=== PATIENT | male | born 1995 | race Hispanic/Latino ===

== ENCOUNTER 2021-12-25 09:00 | Emergency (ER) | payer OTHER ==
[~2021-12-25] VITALS: Ht 170.2 cm; Wt 83.9 kg
[2021-12-25] MEDS ORDERED: TETANUS/DIPHTHERIA TOXOID [ADULT] 0.5 ML VIAL IM SCH (09:17)
[2021-12-25] MEDS ORDERED: BACITRACIN 1 EACH PACKET TP ONE (09:32)
[2021-12-25] MEDS ORDERED: CEPH500B PO (10:26)
[2021-12-25 10:38] VITALS: BP 130/75
== END 2021-12-25 10:35 | disposition home or self-care (01) ==
LOC: EDH 09:00
DX: S01.111A Laceration without foreign body of right eyelid and periocular area, initial encounter (principal); S51.011A Laceration without foreign body of right elbow, initial encounter; S40.211A Abrasion of right shoulder, initial encounter; S50.311A Abrasion of right elbow, initial encounter; V29.49XA Motorcycle driver injured in collision with other motor vehicles in traffic accident, initial encounter; Y93.89 Activity, other specified; Y92.89 Other specified places as the place of occurrence of the external cause; Y99.8 Other external cause status
CPT/HCPCS: 12002; 12013; 70450; 72125; 73030; 73070; 90471; 90714

== ENCOUNTER 2023-06-01 22:32 | Emergency (ER) | payer OTHER ==
[~2023-06-01] VITALS: Ht 167.6 cm; Wt 83.9 kg
[~2023-06-01 22:32] MED LIST: CEPH500B PO
[2023-06-01 23:41] VITALS: BP 123/89; PULSE 82; RESP 18; O2SAT 96
== END 2023-06-01 23:54 | disposition home or self-care (01) ==
LOC: EDH 22:32
DX: F14.10 Cocaine abuse, uncomplicated (principal); R07.89 Other chest pain; R00.2 Palpitations; J45.909 Unspecified asthma, uncomplicated; Z98.890 Other specified postprocedural states
CPT/HCPCS: 36415; 71045; 84484

== ENCOUNTER 2023-09-02 05:02 | Emergency (ER) | payer OTHER ==
[~2023-09-02] VITALS: Ht 167.6 cm; Wt 86.2 kg
[2023-09-02 05:07] VITALS: BP 154/93; PULSE 100; RESP 14; O2SAT 100
[2023-09-02 05:24] LABS: BASOPHILS # (AUTO) 0.09 K/uL (0.00-0.20); BASOPHILS % (AUTO) 1.1 % (0.0-5.0); EOSINOPHILS # (AUTO) 0.51 K/uL (0.00-0.70); EOSINOPHILS % (AUTO) 6.5 % (0.0-8.0); HEMATOCRIT 46.3 % (42-54); IMMATURE GRANULOCYTE ABSOLUTE 0.02 K/uL (0-1); LYMPHOCYTES # (AUTO) 1.7 K/uL (1.0-4.8); LYMPHOCYTES % (AUTO) 22.1 % (21.0-51.0); MEAN CORPUSCULAR HEMOGLOBIN 30.6 pg (27.0-33.0); MEAN CORPUSCULAR HGB CONC 35.6 g/dL (32.0-36.0); MEAN CORPUSCULAR VOLUME 85.9 fL (79-99); MONOCYTES # (AUTO) 0.5 K/uL (0.1-1.0); NEUTROPHILS # (AUTO) 5.1 K/uL (1.8-7.7); PLATELET COUNT (AUTO) 259 K/uL (130-400); RED BLOOD CELL COUNT(AUTO) 5.39 MIL/uL (4.50-6.20); RED CELL DISTRIBUTION WIDTH 11.9 % (11.0-15.5); WHITE BLOOD COUNT (AUTO) 7.9 K/uL (4.8-10.8)
[2023-09-02 05:43] LABS: POTASSIUM 3.3 mmol/L (3.5-5.1)
[2023-09-02 05:47] LABS: BILIRUBIN,TOTAL 0.4 mg/dL (0.2-1.0); TOTAL PROTEIN, SERUM 7.6 g/dL (6.0-8.3)
[2023-09-02 05:55] LABS: INR <= 0.93 (0.85-1.15); PROTHROMBIN TIME 10.3 SEC (9.6-11.6)
[2023-09-02 05:57] LABS: PARTIAL THROMBOPLASTIN TIME 27.3 SEC (26.3-35.5)
== END 2023-09-02 05:32 | disposition left against medical advice (07) ==
LOC: EDH 05:02
DX: R07.89 Other chest pain (principal); Z53.21 Procedure and treatment not carried out due to patient leaving prior to being seen by health care provider
CPT/HCPCS: 36415; 80053; 82550; 83880; 84484; 85025; 85610; 85730; 93005; 99281

== ENCOUNTER 2023-10-11 13:55 | Emergency (ER) | payer OTHER ==
[~2023-10-11] VITALS: Ht 167.6 cm; Wt 85.7 kg
[2023-10-11 15:17] VITALS: PULSE 75; RESP 20
[2023-10-11] MEDS: IPRATROPIUM/ALBUTEROL SULFATE 3 ML SOLUTION IH ONE (15:21)
[2023-10-11] MEDS ORDERED: ALBUHFA IH (15:34)
[2023-10-11] MEDS ORDERED: ALBU1.252 IH (15:52)
[2023-10-11 16:09] VITALS: BP 131/88; PULSE 80; RESP 20; O2SAT 99
[2023-10-12] MEDS ORDERED: MOME13HF12 IH (06:32)
[2023-10-12] MEDS ORDERED: IPRA3AMP24 IH (06:32)
== END 2023-10-11 16:57 | disposition home or self-care (01) ==
LOC: EDH 13:55
DX: J45.901 Unspecified asthma with (acute) exacerbation (principal); Z79.899 Other long term (current) drug therapy
CPT/HCPCS: 94640

== ENCOUNTER 2023-10-12 05:52 | Emergency (ER) | payer OTHER ==
[~2023-10-12] VITALS: Ht 167.6 cm; Wt 81.6 kg
[~2023-10-12 05:52] MED LIST changes: +ALBU1.252 IH; +ALBUHFA IH
[2023-10-12] MEDS ORDERED: IPRA3AMP24 IH (06:32)
[2023-10-12] MEDS ORDERED: MOME13HF12 IH (06:32)
[2023-10-12 06:44] VITALS: BP 122/80; PULSE 0; RESP 18; O2SAT 98
== END 2023-10-12 06:46 | disposition home or self-care (01) ==
LOC: EDH 05:52
DX: J45.41 Moderate persistent asthma with (acute) exacerbation (principal); Z79.899 Other long term (current) drug therapy

== ENCOUNTER 2023-11-05 10:44 | Emergency (ER) | payer OTHER ==
[~2023-11-05] VITALS: Ht 167.6 cm; Wt 85.7 kg
[~2023-11-05 10:44] MED LIST changes: +IPRA3AMP24 IH; +MOME13HF12 IH
[2023-11-05] MEDS: ALBUTEROL 0.083% 2.5 MG/3 ML INH IH ONE (11:50)
[2023-11-05 11:53] VITALS: PULSE 90; RESP 20
[2023-11-05] MEDS: SOLU-MEDROL 125MG VIAL IVP ONE (12:15)
[2023-11-05] MEDS ORDERED: METH4TAB3 PO (13:31)
[2023-11-05] MEDS ORDERED: AUD IH (13:31)
[2023-11-05 13:47] VITALS: BP 128/75; PULSE 98; RESP 22; O2SAT 99
== END 2023-11-05 13:51 | disposition home or self-care (01) ==
LOC: EDH 10:44
DX: J45.909 Unspecified asthma, uncomplicated (principal); Z79.899 Other long term (current) drug therapy
CPT/HCPCS: 99283; 96374; 94640; J2919

== ENCOUNTER 2024-03-12 07:50 | Emergency (ER) | payer BC ==
[~2024-03-12] VITALS: Ht 167.6 cm; Wt 90.7 kg
[~2024-03-12 07:50] MED LIST changes: +AUD IH; +METH4TAB3 PO
[2024-03-12] MEDS ORDERED: PRED20TA3 PO (08:13)
--- NOTE | 2024-03-12 08:13 | ERN ---
General Chief Complaint: Adult-Asthma Stated Complaint: ASTHMA ATTACK Time Seen by MD: 08:01 History of Present Illness Initial Comments 28-year-old male, history of intermittent asthma since he was a child, presents for wheezing. He reports about 72 hours ago he had a fever sore throat and cough. The fevers have subsided but he has continued with wheezing and dry cough. No sputum production. No longer has a sore throat. P.o. tolerant. He has been using his DuoNeb at home every 6 hours. On arrival, his wheezing in all lobes, he is moving air. Oxygen saturation 97% on room air. No tachypnea. Medical history: Intermittent asthma Allergies: Coded Allergies: No Known Allergies (Unverified Allergy, Unknown, 12/25/21) Home Meds Active Scripts Prednisone (Prednisone) 20 Mg Tablet, 1 TAB PO BID for 5 Days, #10 TAB 0 Refills Prov:PUSHPA MUÑOZ DO 03/12/24 Methylprednisolone (Medrol) 4 Mg Tab.ds.pk, 4 MG PO AD, #1 UNIT Prov:KRISTINE JARA NP 11/05/23 Albuterol Sulfate (Albuterol Sulfate) 2.5 Mg/0.5 Ml Vial.neb, 2.5 MG IH Q6H for wheezing/sob, #20 INH 0 Refills Prov:KRISTINE JARA NP 11/05/23 Mometasone/Formoterol (Dulera 100 Mcg/5 Mcg Inhaler) 100 Mcg-5 Mcg/Actuation Hfa.aer.ad, 13 GM IH Twice a day for 90 Days, #7 .72 Prov:CEE GILLIS MD 10/12/23 Ipratropium/Albuterol Sulfate (Iprat-Albut 0.5-3(2.5) mg/3 ml) 0.5 Mg-3 Mg (2.5 Mg Base)/3 Ml Ampul.neb, 3 ML IH Q6HPRN PRN for Shortness of breath and wheezi for 90 Days, #60 / Prov:CEE GILLIS MD 10/12/23 Albuterol Sulfate (Albuterol Sulfate) 1.25 Mg/3 Ml Vial.neb, 1.25 MG IH BID, #7 INH Prov:CHRIS SILVER 10/11/23 Albuterol Sulfate (Ventolin Hfa/Proventil Hfa/Proair Hfa) 90 Mcg Puff, 90 MCG IH DAILY, #1 INHALER Prov:CHRIS SILVER 10/11/23 Cephalexin Monohydrate (Keflex) 500 Mg Cap, 500 MG PO TID for 7 Days, #21 CAP Prov:BISHOP CHASE MD 12/25/21 Past Medical History Past Medical History: Asthma Past Surgical History: None Family History Family History: Negative Social History Social History: Drugs, ETOH ROS Dictation CONSTITUTIONAL: No chills, no fever, no weakness, no diaphoresis, no malaise. HEAD/FACE: No signs of trauma. EENT: No eye pain, no blurred vision, no tearing, no double vision, no ear pain, no ear discharge, no nose pain, no nasal congestion, no throat pain, no throat swelling, no mouth pain. RESPIRATORY: Wheezing and cough CARDIOVASCULAR: No chest pain, no edema, no palpitations, no syncope. GASTROINTESTINAL/ABDOMINAL: No abdominal pain, no constipation, no diarrhea, no nausea, no vomiting. GENITOURINARY: No abnormal discharge, no dysuria, no frequent urination, no hematuria. No complaints of pain in the genitals. MUSCULOSKELETAL: No back pain, no gout, no joint pain, no joint swelling, no muscle pain, no muscle stiffness, no neck pain. INTEGUMENTARY: No change in color, no change in hair/nails, no dryness, no lesion, no lumps, no rash. NEUROLOGICAL/PSYCH: No anxiety, not depressed, no emotional problem, no headache, no numbness, no pre-existing deficit, no history of seizures, no tremors, no weakness. HEMATOLOGIC/LYMPHATIC: Not anemic, no history of blood clots, no apparent bleeding, no bruising, glands not swollen. All Systems Negative, Except as Noted. Physical Exam Physical Exam Dictation VITAL SIGNS: Reviewed. GENERAL APPEARANCE: Alert, oriented x3, no acute distress. HEAD AND FACE: Non-traumatic. EYES: PERRL, pink conjunctivas, eyelid no trauma, anterior chamber clear. EARS: Pinnas intact and no signs of trauma or erythema. Ear canals clear and no discharge. TMs no erythema. NOSE: No discharge, no bleeding. OROPHARYNX: Mouth normal, teeth no caries, tongue pink. Pharynx clear, no erythema. Tonsils no exudates, no abscesses noted. Mucous membrane moist. NECK: Supple, non-tender, no thyromegaly, no masses, no JVD, no bruits. BREAST: Deferred. CHEST: No tenderness, no crepitus, no paradoxical movement, no retractions. LUNGS: Wheezing, mild rhonchi all lobes. Prolonged expiratory phase. No tachypnea. No retractions or accessory muscle use HEART: Regular rate, regular rhythm, no murmur, no gallops. VASCULAR: No peripheral edema. ABDOMEN: Soft, positive bowel sounds, nondistended, no guarding, nontender, no rebound, no masses no hepatomegaly, no splenomegaly, no Neves's sign, no hernias. RECTAL: Deferred. GENITAL: Deferred. NEUROLOGICAL: Normal speech, gross motor function intact, gross sensory function intact. MUSCULOSKELETAL: Neck nontender, full range of motion, back nontender, full range of motion. EXTREMITIES: Nontender, full range of motion. SKIN: Color pink, dry, no turgor, no rash, no lacerations, no abrasions, no contusions. LYMPHATICS: Deferred. Results Laboratory and Microbiology Lab and Micro Result Laboratory Tests Test 03/12/24 08:08 Influenza Type A Antigen Negative For Type A Influenza Type B Antigen Negative For Type B SARS-CoV-2 Antigen (Rapid) PRESUMPTIVE NEGATIVE MDM CC: Wheezing, cough Historian: Patient Comorbidities: Intermittent asthma Differential diagnosis: Asthma exacerbation, flu, viral URI, pneumonia Vital signs: Blood pressure 144/96, respiratory rate 20. Physical exam: Expiratory wheezing all lobes with some rhonchi Studies: Flu and SARS negative CXR: No acute focal infiltrates per my independent interpretation. Patient received 10 mg albuterol, 500 mcg of Atrovent, and oral prednisone. Re-evaluation: Patient has improved. Still very minimal wheezing. Will recommend [id number], we will give a prescription for prednisone 20 mg b.i.d. for five days. Recommend [id number] cough and congestion medications as needed. ED Course Orders Procedure Category Date Status Time Covid19 (Sars Antigen LAB 03/12/24 Complete Rapid) 08:03 Influenza Type A & B, LAB 03/12/24 Complete Rapid 08:03 Chest 1vw RAD 03/12/24 Taken 08:03 Ipratropium/Albuterol PHA 03/12/24 Complete Neb (Duoneb) 08:30 Prednisone 20mg Tab PHA 03/12/24 Complete (Deltasone/Orasone 2 08:30 Albuterol 0.083% PHA 03/12/24 Complete 2.5mg/3ml (Proventil 08:30 Ipratropium 0.5 PHA 03/12/24 Complete Mg/2.5 Ml Inh 08:30 Current Medications Medications (Trade) Dose Ordered Sig/Karly Route PRN Reason Start Time Stop Time Status Last Admin Dose Admin Albuterol (DUOneb) 1 UDVIAL ONCE ONCE IH 03/12/24 08:30 03/12/24 08:08 DC Albuterol Sulfate (Proventil 0.083% 2.5mg/3ml) 10 mg ONCE ONCE IH 03/12/24 08:30 03/12/24 08:31 DC 03/12/24 08:36 Ipratropium [place] (AtrovENT UD) 0.5 mg ONCE ONCE IH 03/12/24 08:30 03/12/24 08:31 DC 03/12/24 08:36 Prednisone (deltaSONE/ oraSONE 20MG TAB) 20 mg ONCE ONCE PO 03/12/24 08:30 03/12/24 08:31 DC 03/12/24 08:22 Vital Signs Date Time Temp Pulse Resp B/P (MAP) Pulse Ox O2 Delivery O2 Flow Rate FiO2 03/12/24 08:39 102 14 03/12/24 08:24 98.2 80 16 137/88 98 Room Air* 0 21 03/12/24 07:54 98.4 99 20 144/96 Room Air 0 DX & DISP Disposition: Discharge Departure Impression: Primary Impression: Asthma exacerbation Additional Impression: Viral URI Condition: Stable Scripts Prednisone (Prednisone) 20 Mg Tablet 1 TAB PO BID for 5 Days, #10 TAB 0 Refills Prov: PUSHPA MUÑOZ DO 03/12/24 Additional Instructions: You likely had a viral upper respiratory infection causing an asthma exacerbation. Your flu and COVID swabs were negative. Your chest x-ray is clear. You received 10 mg of albuterol, 500 mcg of Atrovent, and 20 mg of oral prednisone here in the ER. I have prescribed prednisone. Take twice per day for the next five days. This reduces inflammation in your lungs. I recommend that you continue with your duo nebs at home. For the next 24-48 hours taken DuoNeb every 4 hours. After that, you can use as needed. You can also take [id number] cough and cold medications as needed. Drink plenty of liquids. Please follow up with your primary doctor in 48 hours for re-evaluation. Please return to the emergency department sooner if you have any concerns. Referrals: SELF,REFERRAL (PCP) PUSHPA MUÑOZ DO Mar 12, 2024 08:13
[2024-03-12] MEDS: predniSONE 20 MG TABLET PO ONE (08:22)
[2024-03-12] MEDS ORDERED: IpraTROPium/alBUTERol SULFATE 3 ML SOLUTION IH ONE (08:30)
[2024-03-12 08:32] LABS: INFLUENZA TYPE A Negative For Type A (NEGATIVE); INFLUENZA TYPE B Negative For Type B (NEGATIVE)
[2024-03-12 08:33] LABS: COVID19 (SARS ANTIGEN RAPID) PRESUMPTIVE NEGATIVE (NEGATIVE)
[2024-03-12] MEDS: ALBUTEROL 0.083% 2.5 MG/3 ML INH IH ONE (08:36)
[2024-03-12] MEDS: IpraTROPium 0.5 MG/2.5 ML INH IH ONE (08:36)
[2024-03-12 08:39] VITALS: PULSE 102; RESP 14
--- NOTE | 2024-03-12 09:11 | HMCIMG ---
CHEST 1VW REASON: cough, wheezing COMPARISON: 01/12/2024 FINDINGS: Single view of the chest was obtained. Lungs are clear. Heart size is normal. There is no pulmonary vascular congestion. Mediastinum and bony thorax appear unremarkable. IMPRESSION: 1. Normal single view chest x-ray.
[2024-03-12 09:23] VITALS: BP 120/74; PULSE 100; RESP 16; TEMP 98.2; O2SAT 98
== END 2024-03-12 09:40 | disposition home or self-care (01) ==
LOC: EDH 07:50
DX: J45.21 Mild intermittent asthma with (acute) exacerbation (principal); J06.9 Acute upper respiratory infection, unspecified; B97.89 Other viral agents as the cause of diseases classified elsewhere; Z20.822 Contact with and (suspected) exposure to COVID-19; Z79.51 Long term (current) use of inhaled steroids; Z79.52 Long term (current) use of systemic steroids; Z79.899 Other long term (current) drug therapy
CPT/HCPCS: 71045; 87426; 87804; 94640; 99283

== ENCOUNTER 2024-09-27 16:19 | Emergency (ER) | payer BC ==
[~2024-09-27] VITALS: Ht 167.6 cm; Wt 90.7 kg
[~2024-09-27 16:19] MED LIST changes: +PRED20TA3 PO
--- NOTE | 2024-09-27 16:52 | HMCIMG ---
CHEST 1VW HISTORY: Chest pain COMPARISON: 03/12/2024 FINDINGS: A frontal projection of the chest was obtained. No acute pulmonary infiltrates is seen. The heart is normal in size. Prominent interstitial markings are seen. Degenerative changes are seen. No evidence of aortic calcification is seen. IMPRESSION: 1. No acute pulmonary infiltrate is seen.
[2024-09-27 16:54] LABS: BASOPHILS # (AUTO) 0.09 K/uL (0.00-0.20); BASOPHILS % (AUTO) 0.8 % (0.0-5.0); EOSINOPHILS # (AUTO) 0.11 K/uL (0.00-0.70); HEMATOCRIT 49.9 % (42-54); IMMATURE GRANULOCYTE ABSOLUTE 0.06 K/uL (0-1); LYMPHOCYTES # (AUTO) 2.1 K/uL (1.0-4.8); MEAN CORPUSCULAR HEMOGLOBIN 30.4 pg (27.0-33.0); MEAN CORPUSCULAR HGB CONC 36.3 g/dL (32.0-36.0); MEAN CORPUSCULAR VOLUME 83.7 fL (79-99); MONOCYTES # (AUTO) 0.7 K/uL (0.1-1.0); MONOCYTES % (AUTO) 6.3 % (3.0-13.0); NEUTROPHILS # (AUTO) 8.3 K/uL (1.8-7.7); NEUTROPHILS % (AUTO) 73.4 % (40.0-77.0); PLATELET COUNT (AUTO) 256 K/uL (130-400); RED BLOOD CELL COUNT(AUTO) 5.96 MIL/uL (4.50-6.20); RED CELL DISTRIBUTION WIDTH 12.3 % (11.0-15.5); WHITE BLOOD COUNT (AUTO) 11.4 K/uL (4.8-10.8)
--- NOTE | 2024-09-27 16:55 | ERN ---
General Chief Complaint: Chest Pain Stated Complaint: CHEST PAIN Time Seen by MD: 16:32 Source: patient History of Present Illness Initial Comments Patient is a 29-year-old gentleman coming in complaining of chest pressure and chest discomfort. Patient does admit to doing cocaine. No fever or chills no nausea or vomiting. Allergies: Coded Allergies: No Known Allergies (Unverified Allergy, Unknown, 12/25/21) Home Meds Active Scripts Prednisone (Prednisone) 20 Mg Tablet, 1 TAB PO BID for 5 Days, #10 TAB 0 Refills Prov:PUSHPA MUÑOZ DO 03/12/24 Methylprednisolone (Medrol) 4 Mg Tab.ds.pk, 4 MG PO AD, #1 UNIT Prov:KRISTINE JAAR NP 11/05/23 Albuterol Sulfate (Albuterol Sulfate) 2.5 Mg/0.5 Ml Vial.neb, 2.5 MG IH Q6H for wheezing/sob, #20 INH 0 Refills Prov:KRISTINE JARA NP 11/05/23 Mometasone/Formoterol (Dulera 100 Mcg/5 Mcg Inhaler) 100 Mcg-5 Mcg/Actuation Hfa.aer.ad, 13 GM IH Twice a day for 90 Days, #7 .72 Prov:CEE GILLIS MD 10/12/23 Ipratropium/Albuterol Sulfate (Iprat-Albut 0.5-3(2.5) mg/3 ml) 0.5 Mg-3 Mg (2.5 Mg Base)/3 Ml Ampul.neb, 3 ML IH Q6HPRN PRN for Shortness of breath and wheezi for 90 Days, #60 / Prov:CEE GILLIS MD 10/12/23 Albuterol Sulfate (Albuterol Sulfate) 1.25 Mg/3 Ml Vial.neb, 1.25 MG IH BID, #7 INH Prov:CHRIS SILVER 10/11/23 Albuterol Sulfate (Ventolin Hfa/Proventil Hfa/Proair Hfa) 90 Mcg Puff, 90 MCG IH DAILY, #1 INHALER Prov:CHRIS SILVER 10/11/23 Cephalexin Monohydrate (Keflex) 500 Mg Cap, 500 MG PO TID for 7 Days, #21 CAP Prov:BISHOP CHASE MD 12/25/21 Past Medical History Past Medical History: Asthma, Other Medical History Other: DRUG ABUSE (COCAINE/MARIJUANA) Past Surgical History: None Family History Family History: Negative Social History Social History: Drugs, ETOH ROS Dictation CONSTITUTIONAL: No chills, no fever, no weakness, no diaphoresis, no malaise. HEAD/FACE: No signs of trauma. EENT: No eye pain, no blurred vision, no tearing, no double vision, no ear pain, no ear discharge, no nose pain, no nasal congestion, no throat pain, no throat swelling, no mouth pain. RESPIRATORY: No cough, no orthopnea, no SOB, no stridor, no wheezing. CARDIOVASCULAR: chest pain, no edema, no palpitations, no syncope. GASTROINTESTINAL/ABDOMINAL: No abdominal pain, no constipation, no diarrhea, no nausea, no vomiting. GENITOURINARY: No abnormal discharge, no dysuria, no frequent urination, no hematuria. No complaints of pain in the genitals. MUSCULOSKELETAL: No back pain, no gout, no joint pain, no joint swelling, no muscle pain, no muscle stiffness, no neck pain. INTEGUMENTARY: No change in color, no change in hair/nails, no dryness, no lesion, no lumps, no rash. NEUROLOGICAL/PSYCH: No anxiety, not depressed, no emotional problem, no headache, no numbness, no pre-existing deficit, no history of seizures, no tremors, no weakness. HEMATOLOGIC/LYMPHATIC: Not anemic, no history of blood clots, no apparent bleeding, no bruising, glands not swollen. All Systems Negative, Except as Noted. Physical Exam Physical Exam Dictation VITAL SIGNS: Reviewed. GENERAL APPEARANCE: Alert, oriented x3, no acute distress, obese. HEAD AND FACE: Non-traumatic. EYES: PERRL, pink conjunctivas, eyelid no trauma, anterior chamber clear. EARS: Pinnas intact and no signs of trauma or erythema. Ear canals clear and no discharge. TMs no erythema. NOSE: No discharge, no bleeding. OROPHARYNX: Mouth normal, teeth no caries, tongue pink. Pharynx clear, no erythema. Tonsils no exudates, no abscesses noted. Mucous membrane moist. NECK: Supple, non-tender, no thyromegaly, no masses, no JVD, no bruits. BREAST: Deferred. CHEST: No tenderness, no crepitus, no paradoxical movement, no retractions. LUNGS: Clear, well-ventilated, symmetric, no rales, no wheezing, no rhonchi, no stridor, good breath sounds bilaterally. HEART: Regular rate, regular rhythm, no murmur, no gallops. VASCULAR: No peripheral edema. ABDOMEN: Soft, positive bowel sounds, nondistended, no guarding, nontender, no rebound, no masses no hepatomegaly, no splenomegaly, no Neves's sign, no hernias. RECTAL: Deferred. GENITAL: Deferred. NEUROLOGICAL: Normal speech, gross motor function intact, gross sensory funct ion intact. MUSCULOSKELETAL: Neck nontender, full range of motion, back nontender, full range of motion. EXTREMITIES: Nontender, full range of motion. SKIN: Color pink, dry, no turgor, no rash, no lacerations, no abrasions, no contusions. LYMPHATICS: Deferred. Results Laboratory and Microbiology Lab and Micro Result Laboratory Tests Test 09/27/24 16:40 09/27/24 18:20 09/27/24 18:36 White Blood Count 11.4 K/uL (4.8-10.8) H Red Blood Count 5.96 MIL/uL (4.50-6.20) Hemoglobin 18.1 g/dL (14.0-18.0) H Hematocrit 49.9 % (42-54) Mean Corpuscular Volume 83.7 fL (79-99) Mean Corpuscular Hemoglobin 30.4 pg (27.0-33.0) Mean Corpuscular Hemoglobin Concent 36.3 g/dL (32.0-36.0) H Red Cell Distribution Width 12.3 % (11.0-15.5) Platelet Count 256 K/uL (130-400) Mean Platelet Volume 9.9 fL (7.5-10.5) Immature Granulocyte % (Auto) 0.5 % (0-1) Neutrophils (%) (Auto) 73.4 % (40.0-77.0) Lymphocytes (%) (Auto) 18.0 % (21.0-51.0) L Monocytes (%) (Auto) 6.3 % (3.0-13.0) Eosinophils (%) (Auto) 1.0 % (0.0-8.0) Basophils (%) (Auto) 0.8 % (0.0-5.0) Neutrophils # (Auto) 8.3 K/uL (1.8-7.7) H Lymphocytes # (Auto) 2.1 K/uL (1.0-4.8) Monocytes # (Auto) 0.7 K/uL (0.1-1.0) Eosinophils # (Auto) 0.11 K/uL (0.00-0.70) Basophils # (Auto) 0.09 K/uL (0.00-0.20) Absolute Immature Granulocyte (auto 0.06 K/uL (0-1) Nucleated Red Blood Cells 0.0 % (0.0-0.19) Red Blood Cell Morphology See comments Sodium Level 136 mmol/L (136-145) Potassium Level 4.0 mmol/L (3.5-5.1) Chloride Level 101 mmol/L (101-111) Carbon Dioxide Level 27 mmol/L (21-32) Blood Urea Nitrogen 9 mg/dL (7-18) Creatinine 0.9 mg/dL (0.5-1.3) Glomerular Filtration Rate Calc 117 mL/min (>90) Random Glucose 114 mg/dL (70-105) H Total Calcium 9.3 mg/dL (8.5-10.1) Total Creatine Kinase 172 U/L (21-232) # Troponin I High Sensitivity 8 ng/L (4-75) 7 ng/L (4-75) B-Type Natriuretic Peptide < 5 pg/mL (0-100) Urine Color COLORLESS (YELLOW) Urine Appearance CLEAR (CLEAR) Urine pH 6.5 (5.0-8.0) Urine Specific [place] 1.004 (1.001-1.031) Urine Protein NEGATIVE mg/dL (NEGATIVE) Urine Glucose (UA) NEGATIVE mg/dL (NEGATIVE) Urine Ketones 10 mg/dL (NEGATIVE) H Urine Occult Blood NEGATIVE (NEGATIVE) Urine Nitrate NEGATIVE (NEGATIVE) Urine Bilirubin NEGATIVE mg/dL (NEGATIVE) Urine Urobilinogen 0.2 mg/dL (0.2-1.0) Urine Leukocyte Esterase NEGATIVE Will/uL Urine Opiates Screen NEGATIVE (NEGATIVE) Urine Barbiturates Screen NEGATIVE (NEGATIVE) Urine Phencyclidine Screen NEGATIVE (NEGATIVE) Urine Amphetamines Screen POSITIVE (NEGATIVE) H Urine Benzodiazepines Screen NEGATIVE (NEGATIVE) Urine Cocaine Screen NEGATIVE (NEGATIVE) Urine Marijuana (THC) Screen POSITIVE (NEGATIVE) H Labs Reviewed?: Yes EKG/XRAY/US/CT/MRI EKG Comment 09/27/2024 time 4:40 p.m. Ventricular rate 103 Sinus tachycardia [place] [address] wave elevation or depression MDM MDM: Differential diagnosis: Polysubstance abuse, chest pain Rationale: Tests considered and ordered secondary to shared decision making include: Previous outside records reviewed: Old ER visits. Risk of complication and/or morbidity or mortality of patient management: None Medications-Per medication reconciliation Need for hospitalization: Patient does not meet criteria for hospitalization. Need for emergency major/minor surgery: No There are no social concerns with this patient. Prescription drug management Prescriptions will include symptomatic care Patient's prior external medical records from other ER visits were reviewed by me as indicated. Prior testing and results from previous visits were reviewed. Prior tests were taken into account with medical decision making and resource utilization, independent historian/historians were used to obtain complete medical history. I independently interpreted the test that were performed, results were reviewed by me and considered findings on radiology if ordered. Medical management and examination interpretation discussions were had by me with other qualified healthcare professionals as indicated for the patient's care. Laboratories tests are negative except for the tox screen which is positive for amphetamines and THC. Patient against wears that he was taking cocaine. I think the dealer gave him some contaminated materials. Patient feels much better with the fluids and knowing that his cardiac enzymes are negative. ED Course Orders Procedure Category Date Status Time Vital Signs Per CPOE 09/27/24 Transmitted Routine 16:29 B-Type Natriuretic LAB 09/27/24 Complete Peptide 16:29 Chest 1vw RAD 09/27/24 Resulted 16:29 12 Lead Ekg Tracing- EKG 09/27/24 Complete Technical 16:29 Oxygen By Nc/Pulse Ox CPOE 09/27/24 Transmitted 16:29 Maintain Iv CPOE 09/27/24 Transmitted 16:29 Iv Insertion CPOE 09/27/24 Transmitted 16:29 Cardiac Monitoring CPOE 09/27/24 Transmitted 16:29 Pulse Oximetry With CPOE 09/27/24 Transmitted Vs And Prn 16:29 Cbc With Differential LAB 09/27/24 Complete 16:29 Activity: Br W/Brp CPOE 09/27/24 Transmitted With Assist 16:29 Creatine Kinase, Total LAB 09/27/24 Complete 16:29 Troponin I High LAB 09/27/24 Complete Sensitivity 16:29 Urinalysis Profile LAB 09/27/24 Complete 16:29 Basic Metabolic Panel LAB 09/27/24 Complete 16:29 Drug Screen Urine LAB 09/27/24 Complete 16:29 Hydroxyzine 50mg Vial PHA 09/27/24 Complete (Atarax 50mg Inj) 17:01 Diphenhydramine Hcl PHA 09/27/24 Complete (Benadryl Inj) 17:42 0.9%Nacl 1000ml (Ns PHA 09/27/24 Complete 1000ml) 18:00 0.9%Nacl 1000ml (Ns PHA 09/27/24 In Process 1000ml) 18:30 Troponin I High LAB 09/27/24 Complete Sensitivity 18:29 Current Medications Medications (Trade) Dose Ordered Sig/Karly Route PRN Reason Start Time Stop Time Status Last Admin Dose Admin Diphenhydramine HCl (BENAdryl INJ) 50 mg STK-MED ONCE .ROUTE 09/27/24 17:42 09/27/24 17:42 DC 09/27/24 17:45 Hydroxyzine HCl (ATArax 50MG INJ) 50 mg ONCE STAT IM 09/27/24 17:01 09/27/24 17:05 DC 09/27/24 17:15 Sodium Chloride 1,000 ml @ 0 mls/hr ONCE ONCE IV 09/27/24 18:00 09/27/24 18:01 DC 09/27/24 17:46 Sodium Chloride 1,275 ml @ 425 mls/hr ONCE ONCE IV 09/27/24 18:30 09/27/24 21:29 09/27/24 18:35 Vital Signs Date Time Temp Pulse Resp B/P (MAP) Pulse Ox O2 Delivery O2 Flow Rate FiO2 09/27/24 19:22 98.4 88 16 147/124 98 Room Air* 0 21 09/27/24 16:30 98.2 102 17 150/100 98 Room Air* 0 21 09/27/24 16:30 99.5 109 17 157/95 95 Room Air 0 DX & DISP Disposition: Discharge Departure Impression: Primary Impression: Palpitations Additional Impression: Methamphetamine abuse Condition: Stable Additional Instructions: I strongly recommend going to narcotics anonymous meetings to help prevent relapses. Referrals: SELF,REFERRAL (PCP) BISHOP CHASE MD Sep 27, 2024 16:55 SCOTTY FLORES MD Sep 27, 2024 19:54
--- NOTE | 2024-09-27 17:00 | NUR ---
Patient stated he does not take any home medications.
[2024-09-27 17:04] LABS: CREATININE 0.9 mg/dL (0.5-1.3)
[2024-09-27] MEDS: hydrOXYzine 50MG VIAL 50 MG/ML VIAL IM STA (17:15)
[2024-09-27 17:20] LABS: B-TYPE NATRIURETIC PEPTIDE < 5 pg/mL (0-100)
--- NOTE | 2024-09-27 17:30 | NUR ---
Not able to optain urine sample yet. Patient stated he does not want to pee at this moment.
[2024-09-27] MEDS: DiphenhydrAMINE HCL 50 MG/ML VIAL ONE (17:45)
[2024-09-27] MEDS: 0.9%NACL 1000ML 1,000 ML IV ONE (17:46)
--- NOTE | 2024-09-27 18:17 | NUR ---
obtained urine sample and sent to lab.
[2024-09-27 18:27] LABS: APPEARANCE,URINE CLEAR (CLEAR); BILIRUBIN,URINE NEGATIVE (NEGATIVE); COLOR,URINE COLORLESS (YELLOW); GLUCOSE, URINE (UA) NEGATIVE (NEGATIVE); KETONES,URINE 10 mg/dL (NEGATIVE); LEUKOCYTE ESTERASE ,URINE NEGATIVE Leu/uL (NEGATIVE); NITRATE,URINE NEGATIVE (NEGATIVE); OCCULT BLOOD,URINE NEGATIVE (NEGATIVE); PH,URINE 6.5 (5.0-8.0); PROTEIN,URINE NEGATIVE (NEGATIVE); UROBILINOGEN,URINE 0.2 mg/dL (0.2-1.0)
[2024-09-27 18:28] LABS: ADD UA MICROSCOPIC NO
[2024-09-27 18:33] LABS: AMPHET/METH SCREEN,URINE POSITIVE (NEGATIVE); BARBITURATE SCREEN, URINE NEGATIVE (NEGATIVE); BENZODIAZEPINES SCREEN,URINE NEGATIVE (NEGATIVE); CANNABINOID SCREEN,URINE POSITIVE (NEGATIVE); COCAINE SCREEN,URINE NEGATIVE (NEGATIVE); OPIATE SCREEN,URINE NEGATIVE (NEGATIVE); PHENCYCLIDINE SCREEN,URINE NEGATIVE (NEGATIVE)
[2024-09-27] MEDS: 0.9%NACL 1000ML 1,275 ML IV ONE (18:35)
--- NOTE | 2024-09-27 19:46 | EKG ---
[facility] Test Date: 2024-09-27 Test Time: 16:40:32 Pat Name: CHRIS OBRIEN Department: [facility] Room: Gender: Dye Range Tender: [birth year] : 1995 Requested By: BISHOP CHASE Order Number: [id number] Reading MD: Evert Prado Measurements Intervals [place] Rate: 103 P: 65 [place]: 144 QRS: 68 QRSD: 80 T: 52 QT: 331 QTc: 435 Interpretive Statements Sinus tachycardia Compared to ECG 01/12/2024 06:24:39 Sinus rhythm no longer present Electronically Signed On 09-28-2024 22:16:38 CDT by Evert Prado Please click the below link to view image of tracing.
[2024-09-27 20:00] VITALS: BP 152/101; PULSE 93; RESP 17; TEMP 98.4; O2SAT 98
== END 2024-09-27 20:07 | disposition home or self-care (01) ==
LOC: EDH 16:19
DX: R00.2 Palpitations (principal); F15.10 Other stimulant abuse, uncomplicated; J45.909 Unspecified asthma, uncomplicated; Z79.51 Long term (current) use of inhaled steroids; Z79.52 Long term (current) use of systemic steroids
CPT/HCPCS: 99284; 96360; 71045; 96361; 82550; 84484 ×2; 80048; 83880; 80305; 85025; 36415; 93005; 81003; 96372 ×2; J1200; J3410; J7030 ×2

== ENCOUNTER 2024-12-21 06:33 | Emergency (ER) | payer BC ==
[~2024-12-21] VITALS: Ht 167.6 cm; Wt 90.7 kg
[2024-12-21] MEDS: MAGNESIUM 2GM PREMIX 50ML 50 ML IV SCH (06:51)
--- NOTE | 2024-12-21 06:52 | ERN ---
ED Note History of Present Illness Stated Complaint: SOB Chief Complaint: Shortness of Breath Time Seen by MD: 06:43 Dictation: This is a 29-year-old male with known history of asthma came into the ER via EMS for chest tightness and shortness of breath. This has been going on for couple of days and he has been using his inhalers and nebulizer treatments every 4 hours without improvement. EMS was summoned and his initial sats were 92% and albuterol nebulizer treatment was given EN route prior to arrival to ER. Patient's chest feels tight and has difficulty breathing. No cough sputum but does admit to wheezing He has never been intubated before for asthma attack. Temperature 99.4 pulse 124 respirations 18 blood pressure 147/92 with a pulse oximetry of 94% on room air Allergies: Coded Allergies: No Known Allergies (Unverified Allergy, Unknown, 12/25/21) Home Meds Active Scripts Prednisone (Prednisone) 20 Mg Tablet, 1 TAB PO AD for 6 Days, #14 TAB 0 Refills TAKE 1 TAB BY MOUTH THREE TIMES PER DAY X3 DAYS, THEN TAKE 1 TAB BY MOUTH TWICE A DAY X2 DAYS, THEN TAKE 1 TAB BY MOUTH ONCE A DAY X1 DAY. Prov:KRISTINE JARA NP 12/21/24 Albuterol Sulfate (Ventolin Hfa/Proventil Hfa/Proair Hfa) 90 Mcg Puff, 1-2 PUFF IH Q4H PRN for SHORTNESS OF BREATH for 5 Days, #1 INH 0 Refills PHARMACY TO DISPENSE 1 INHALER FOR USE Prov:ORLANDO GARCIA MD 12/21/24 Prednisone (Prednisone) 20 Mg Tablet, 20 MG PO DAILY for 5 Days, #5 TAB Prov:ORLANDO GARCIA MD 12/21/24 Prednisone (Prednisone) 20 Mg Tablet, 1 TAB PO BID for 5 Days, #10 TAB 0 Refills Prov:PUSHPA MUÑOZ DO 03/12/24 Methylprednisolone (Medrol) 4 Mg Tab.ds.pk, 4 MG PO AD, #1 UNIT Prov:KRISTINE JARA NP 11/05/23 Albuterol Sulfate (Albuterol Sulfate) 2.5 Mg/0.5 Ml Vial.neb, 2.5 MG IH Q6H for wheezing/sob, #20 INH 0 Refills Prov:KRISTINE JARA NP 11/05/23 Mometasone/Formoterol (Dulera 100 Mcg/5 Mcg Inhaler) 100 Mcg-5 Mcg/Actuation Hfa.aer.ad, 13 GM IH Twice a day for 90 Days, #7 .72 Prov:CEE HOOD MD 10/12/23 Ipratropium/Albuterol Sulfate (Iprat-Albut 0.5-3(2.5) mg/3 ml) 0.5 Mg-3 Mg (2.5 Mg Base)/3 Ml Ampul.neb, 3 ML IH Q6HPRN PRN for Shortness of breath and wheezi for 90 Days, #60 / Prov:CEE HOOD MD 10/12/23 Albuterol Sulfate (Albuterol Sulfate) 1.25 Mg/3 Ml Vial.neb, 1.25 MG IH BID, #7 INH Prov:CHRIS SILVER 10/11/23 Albuterol Sulfate (Ventolin Hfa/Proventil Hfa/Proair Hfa) 90 Mcg Puff, 90 MCG IH DAILY, #1 INHALER Prov:CHRIS SILVER 10/11/23 Cephalexin Monohydrate (Keflex) 500 Mg Cap, 500 MG PO TID for 7 Days, #21 CAP Prov:BISHOP CHASE MD 12/25/21 Past Medical History Past Medical History: Asthma Additional Past Medical Hx: DRUG ABUSE (COCAINE/MARIJUANA) Surgical History: None Family History: Negative Social History: Drugs, ETOH RN Note Reviewed/Agreed w/PFSH: Yes Review of System Dictation Constitutional: Negative for fever,chills, and weight loss Eyes: Negative for injury, pain,redness, and discharge ENT: Negative for injury,pain or swelling Cardiovascular: Negative for chest pain, palpitations, and edema Respiratory: Positive for shortness of breath, , and wheezing, cough Abdomen/GI: Negative for abdominal pain, nausea, vomiting, diarrhea, and constipation Back: Negative for injury and pain : Negative for injury, bleeding and discharge MS/Extremity: Negative for injury and deformity Skin: Negative for rash, and discoloration Neuro: Negative for headache, weakness, numbness, tingling, and seizure Psych: Negative for suicide ideation, homicidal ideation, and hallucinations Initial Vital Sign VS Vital Signs Date Time Temp Pulse Resp B/P (MAP) Pulse Ox O2 Delivery O2 Flow Rate FiO2 12/21/24 06:36 99.3 124 18 147/92 94 Room Air 0 12/21/24 06:42 21 Physical Exam Dictation General: awake, alert, NAD looks sick but not using his accessory muscles. Head/Face: Normocephalic, atraumatic Eyes: PERRL, EOMI, vision at baseline ENT: oral cavity clear, TMs clear, no signs of infection Neck: Trachea midline, supple, no nuchal rigidity Cardiovascular: Tachy, normal S1/S2, No MRGs, no JVD Respiratory: Decreased breath sounds with a prolonged expiratory phase wheezes more pronounced in the right lung Abdomen: Soft, non-tender, non-distended, normal bowel sounds, no guarding or rebound. Skin: Warm, dry, normal turgor, no rash MS/Extremity: Pulses equal, no cyanosis, neurovascular intact, FROM Neuro: COAx4, GCS 15, strength 5/5, CN 2-12 intact, normal cerebellar exam, normal gait, Psych: Normal behavior, mood, and affect normal Extremities-trace edema without any palpable cords, Homans sign is negative Results (Laboratory/Radiology) Laboratory/Radiology Laboratory Tests Test 12/21/24 06:43 12/21/24 06:44 12/21/24 08:09 Influenza Type A Antigen Negative For Type A Influenza Type B Antigen Negative For Type B SARS-CoV-2, RNA, NAAT NEGATIVE SARS CoV-2 Group A Streptococcus Rapid negative (NEGATIVE) White Blood Count 11.6 K/uL (4.8-10.8) H Red Blood Count 5.71 MIL/uL (4.50-6.20) Hemoglobin 17.4 g/dL (14.0-18.0) Hematocrit 48.6 % (42-54) Mean Corpuscular Volume 85.1 fL (79-99) Mean Corpuscular Hemoglobin 30.5 pg (27.0-33.0) Mean Corpuscular Hemoglobin Concent 35.8 g/dL (32.0-36.0) Red Cell Distribution Width 12.3 % (11.0-15.5) Platelet Count 212 K/uL (130-400) Mean Platelet Volume 9.8 fL (7.5-10.5) Immature Granulocyte % (Auto) 0.3 % (0-1) Neutrophils (%) (Auto) 63.9 % (40.0-77.0) Lymphocytes (%) (Auto) 24.8 % (21.0-51.0) Monocytes (%) (Auto) 5.9 % (3.0-13.0) Eosinophils (%) (Auto) 4.2 % (0.0-8.0) Basophils (%) (Auto) 0.9 % (0.0-5.0) Neutrophils # (Auto) 7.4 K/uL (1.8-7.7) Lymphocytes # (Auto) 2.9 K/uL (1.0-4.8) Monocytes # (Auto) 0.7 K/uL (0.1-1.0) Eosinophils # (Auto) 0.49 K/uL (0.00-0.70) Basophils # (Auto) 0.10 K/uL (0.00-0.20) Absolute Immature Granulocyte (auto 0.04 K/uL (0-1) Nucleated Red Blood Cells 0.0 % (0.0-0.19) Sodium Level 141 mmol/L (136-145) Potassium Level 3.4 mmol/L (3.5-5.1) L Chloride Level 106 mmol/L (101-111) Carbon Dioxide Level 25 mmol/L (21-32) Blood Urea Nitrogen 11 mg/dL (7-18) Creatinine 1.0 mg/dL (0.5-1.3) Glomerular Filtration Rate Calc 103 mL/min (>90) Random Glucose 116 mg/dL (70-105) H Total Calcium 8.9 mg/dL (8.5-10.1) Total Creatine Kinase 135 U/L (21-232) # Troponin I High Sensitivity < 4.0 ng/L (4-75) L Urine Opiates Screen NEGATIVE (NEGATIVE) Urine Barbiturates Screen NEGATIVE (NEGATIVE) Urine Phencyclidine Screen NEGATIVE (NEGATIVE) Urine Amphetamines Screen NEGATIVE (NEGATIVE) Urine Benzodiazepines Screen NEGATIVE (NEGATIVE) Urine Cocaine Screen NEGATIVE (NEGATIVE) Urine Marijuana (THC) Screen POSITIVE (NEGATIVE) H Labs Reviewed?: Yes EKG Comment: Twelve lead EKG done on 12/21/2024 at 6:45 a.m. showed a heart rate of 118, [place] interval 143, QRS 79, QT/QTC 317/445 Impression sinus tachycardia with nonspecific ST-T changes noted. EKG rhythm strip also shows sinus tachycardia nonspecific ST-T changes. Interpreted by ER MD Dr. Hood ED Course ED Course Orders Procedure Category Date Status Time O2 Nc Keep Sats CPOE 12/21/24 Transmitted Greater 92% 06:39 Notify Md: Spo2 < 88% CPOE 12/21/24 Transmitted 06:39 Cbc With Differential LAB 12/21/24 Complete 06:39 Cardiac Panel LAB 12/21/24 Complete 06:39 Chest 1vw RAD 12/21/24 Resulted 06:39 12 Lead Ekg Tracing- EKG 12/21/24 Complete Technical 06:39 Basic Metabolic Panel LAB 12/21/24 Complete 06:39 Covid Rna Naat LAB 12/21/24 Complete 06:41 Influenza Type A & B, LAB 12/21/24 Complete Rapid 06:41 Rapid (Group A Strep) LAB 12/21/24 Complete 06:41 Methylprednisolone PHA 12/21/24 Complete Succ 125mg (Solu-Medr 07:00 Magnesium 2gm Premix PHA 12/21/24 Complete 50ml (Magnesium 2gm 07:00 Drug Screen Urine LAB 12/21/24 Complete 06:54 0.9%Nacl 1000ml (Ns PHA 12/21/24 Complete 1000ml) 07:00 Current Medications Medications (Trade) Dose Ordered Sig/Karly Route PRN Reason Start Time Stop Time Status Last Admin Dose Admin Magnesium Sulfate 50 ml @ 0 mls/hr PROTOCOL IV 12/21/24 07:00 12/21/24 09:05 DC 12/21/24 06:51 Methylprednisolone Sodium Succinate (Solu-medROL 125MG) 125 mg ONCE ONCE IVP 12/21/24 07:00 12/21/24 07:01 DC 12/21/24 06:51 Sodium Chloride 1,000 ml @ 125 mls/hr ONCE ONCE IV 12/21/24 07:00 12/21/24 09:05 DC 12/21/24 08:12 Vital Signs Date Time Temp Pulse Resp B/P (MAP) Pulse Ox O2 Delivery O2 Flow Rate FiO2 12/21/24 08:10 98.8 105 20 133/80 97 Room Air* 0 21 12/21/24 06:42 117 26 137/83 94 Room Air* 0 12/21/24 06:36 99.3 124 18 147/92 94 Room Air 0 We will perform diagnostic labs, imaging and administer medications according to the patient's complaint. Once the results are available, will review and personally interpreted the labs to rule out any acute life-threatening emergency the trach require immediate intervention and treatment. I will then re-evaluate the patient after treatment and diagnostic exams have return to determine whether the patient requires any further testing, can safely be discharged home or need further admission to hospital for additional treatment and evaluation. Patient is signed out to oncoming physician at 7:05 a.m. Medical Decision Making MDM Differential diagnosis: Acute asthma attack, bronchitis, viral syndrome, inhalational injury from recreational drugs Rationale: Tests considered and ordered secondary to shared decision making include: Previous outside records reviewed: Old ER visits. Risk of complication and/or morbidity or mortality of patient management: None Medications-Per medication reconciliation Need for hospitalization: Patient does not meet criteria for hospitalization. Need for emergency major/minor surgery: No There are no social concerns with this patient. Prescription drug management Prescriptions will include symptomatic care Patient's prior external medical records from other ER visits were reviewed by me as indicated. Prior testing and results from previous visits were reviewed. Prior tests were taken into account with medical decision making and resource utilization, independent historian/historians were used to obtain complete medical history. I independently interpreted the test that were performed, results were reviewed by me and considered findings on radiology if ordered. Medical management and examination interpretation discussions were had by me with other qualified healthcare professionals as indicated for the patient's care. 29-year-old male with chest pain and asthma exacerbation, negative workup symptoms improved no respiratory distress no oxygenating Problem List Problem List: (1) Asthma exacerbation (2) Cocaine abuse (3) Methamphetamine abuse (4) Moderate persistent asthma DX & DISP Disposition: Discharge Departure Impression: Primary Impression: Asthma exacerbation Additional Impressions: Palpitations, Moderate persistent asthma Condition: Stable Scripts Albuterol Sulfate (Ventolin Hfa/Proventil Hfa/Proair Hfa) 90 Mcg Puff 1-2 PUFF IH Q4H PRN for SHORTNESS OF BREATH for 5 Days, #1 INH 0 Refills PHARMACY TO DISPENSE 1 INHALER FOR USE Prov: ORLANDO GARCIA MD 12/21/24 Prednisone (Prednisone) 20 Mg Tablet 20 MG PO DAILY for 5 Days, #5 TAB Prov: ORLANDO GARCIA MD 12/21/24 Referrals: SELF,REFERRAL (PCP) CEE HOOD MD Dec 21, 2024 06:51 ORLANDO GARCIA MD Dec 21, 2024 08:55
[2024-12-21 06:57] LABS: IMMATURE GRANULOCYTE ABSOLUTE 0.04 K/uL (0-1); NUCLEATED RED BLOOD CELLS 0.0 % (0.0-0.19); PLATELET COUNT (AUTO) 212 K/uL (130-400); RED BLOOD CELL COUNT(AUTO) 5.71 MIL/uL (4.50-6.20); RED CELL DISTRIBUTION WIDTH 12.3 % (11.0-15.5); WHITE BLOOD COUNT (AUTO) 11.6 K/uL (4.8-10.8)
[2024-12-21 07:11] LABS: RAPID GROUP A STREP negative (NEGATIVE)
[2024-12-21 07:15] LABS: CREATINE KINASE, TOTAL 135 U/L (21-232); CREATININE 1.0 mg/dL (0.5-1.3); GLOMERULAR FILTR. RATE CALC 103 mL/min (>90); GLUCOSE,RANDOM 116 mg/dL (70-105); SODIUM SERUM 141 mmol/L (136-145); UREA NITROGEN, BLOOD 11 mg/dL (7-18)
[2024-12-21 07:15] LABS: SARS-CoV-2, RNA, NAAT NEGATIVE SARS CoV-2 (NEGATIVE)
[2024-12-21 07:21] LABS: INFLUENZA TYPE A Negative For Type A (NEGATIVE); INFLUENZA TYPE B Negative For Type B (NEGATIVE)
--- NOTE | 2024-12-21 07:24 | HMCIMG ---
EXAM: CR Chest, 1 View. CLINICAL HISTORY: Dyspnea/SOB COMPARISON: 09/27 16:44 EDT CR - CHEST 1VW FINDINGS: LUNGS: There is no mass, infiltrate, or acute pulmonary abnormality. PLEURAL SPACES: No evidence of pleural effusion or pneumothorax. MEDIASTINUM: The cardiomediastinal silhouette is within normal limits. BONES: No acute osseous abnormality. IMPRESSION: No acute cardiopulmonary pathology is evident. /[place]
[2024-12-21 08:10] VITALS: BP 133/80; PULSE 105; RESP 20; TEMP 98.7; O2SAT 97
[2024-12-21] MEDS: 0.9%NACL 1000ML 1,000 ML IV ONE (08:12)
[2024-12-21 08:23] LABS: AMPHET/METH SCREEN,URINE NEGATIVE (NEGATIVE); BARBITURATE SCREEN, URINE NEGATIVE (NEGATIVE); CANNABINOID SCREEN,URINE POSITIVE (NEGATIVE); COCAINE SCREEN,URINE NEGATIVE (NEGATIVE)
[2024-12-21] MEDS ORDERED: ALBUHFA IH (08:54)
[2024-12-21] MEDS ORDERED: PRED20TA3 PO ×2 (08:54→13:02)
--- NOTE | 2024-12-21 10:40 | EKG ---
[facility] Test Date: 2024-12-21 Test Time: 06:45:09 Pat Name: CHRIS OBRIEN Department: [facility] Patient ID: [facility] [id number] Room: Gender: M Review Assistant: [id number] : 1995 Requested By: CEE GILLIS Order Number: [id number] Reading MD: Neida Eldridge Measurements Intervals Lind Rate: 118 P: 70 MA: 143 QRS: 63 QRSD: 79 T: 57 QT: 317 QTc: 445 Interpretive Statements Sinus tachycardia Compared to ECG 09/27/2024 16:40:32 No significant changes Electronically Signed On 12-22-2024 14:08:12 CDT by Neida Eldridge Please click the below link to view image of tracing.
== END 2024-12-21 09:05 | disposition home or self-care (01) ==
LOC: EDH 06:33
DX: J45.41 Moderate persistent asthma with (acute) exacerbation (principal); R00.2 Palpitations; Z20.822 Contact with and (suspected) exposure to COVID-19; Z79.899 Other long term (current) drug therapy; Z79.51 Long term (current) use of inhaled steroids
CPT/HCPCS: 99284; 96365; 71045; 87635; 96361; 96375; 82550; 84484; 80048; 80305; 85025; 87880; 87804 ×2; 36415; 93005; J2919; J3475; J7030